=== PATIENT | female | born 1995 | race Caucasian/White ===

== ENCOUNTER 2017-06-10 15:01 | Emergency (ER) | payer BC, OTHER ==
[2017-06-10 15:15] VITALS: BP 109/83
--- NOTE | 2017-06-10 16:45 | UC ---
Respiratory Complaint HPI - HPI Summary HPI Summary: Patient presents with cough and congestion. She notes to pain with coughing. She has hx of bronchitis and states this feels similar. She notes to cough with production, SOB, chest congestion, nasal congestion, cough worse with recumbent position, better with orthostasis x 1 week. She states she wanted to wait and see her PCP but was afraid they would tell her to wait and she states she knows she needs abx at this time. Hx of bronchitis x yearly. Denies fevers , sweats or chills. - History of Current Complaint Chief Complaint: UCRespiratory Stated Complaint: URI Time Seen by Provider: 06/10/17 16:03 Hx Obtained From: Patient Hx Last Menstrual Period: NOW ?: No Onset/Duration: Sudden Onset Timing: Constant Severity Initially: Mild Severity Currently: Mild Pain Intensity: 0 Pain Scale Used: 0-10 Numeric Character: Cough: Productive Aggravating Factors: Deep Breaths, Recumbent Position Alleviating Factors: Bronchodilator, Upright Position Associated Signs And Symptoms: Positive: Dyspnea, URI, Nasal Congestion, Sinus Discomfort - Risk Factors Pulmonary Embolism Risk Factors: Negative Cardiac Risk Factors: Negative Pseudomonas Risk Factors: Negative Tuberculosis Risk Factors: Negative - Allergies/Home Medications Allergies/Adverse Reactions: Allergies Allergy/AdvReac Type Severity Reaction Status Date / Time dust mytes Allergy Unknown Shortness Uncoded 06/10/17 15:16 of Breath Home Medications: Home Medications Multiple Vitamins W/ Minerals [Vitamins & Minerals] 1 tab PO DAILY 06/10/17 [ History Confirmed 06/10/17] PMH/Surg Hx/FS Hx/Imm Hx Previously Healthy: Yes Other History Of: Negative For: Anticoagulant Therapy - Surgical History Surgical History: None - Social History Occupation: Employed Part-time Lives: With Family Alcohol Use: Occasionally Substance Use Type: None Smoking Status (MU): Never Smoked Tobacco Review of Systems Constitutional: Negative Skin: Negative Eyes: Negative ENT: Sore Throat, Nasal Discharge, Sinus Congestion, Sinus Pain/Tenderness Respiratory: Shortness Of Breath, Cough Cardiovascular: Negative Motor: Negative Neurovascular: Negative Neurological: Negative Is Patient Immunocompromised?: No All Other Systems Reviewed And Are Negative: Yes Physical Exam Triage Information Reviewed: Yes Appearance: Well-Appearing, Well-Nourished Vital Signs: Initial Vital Signs Temp 98.3 F 06/10/17 15:10 Pulse 68 06/10/17 15:10 Resp 16 06/10/17 15:10 BP 109/83 06/10/17 15:10 Pulse Ox 100 06/10/17 15:10 Vital Signs Reviewed: Yes Eye Exam: Normal Eyes: Positive: Conjunctiva Clear ENT: Positive: Pharynx normal, Nasal congestion, Nasal drainage Dental Exam: Normal Neck exam: Normal Neck: Positive: Supple, No Lymphadenopathy Respiratory Exam: Normal Respiratory: Positive: Chest non-tender Cardiovascular Exam: Normal Cardiovascular: Positive: RRR Musculoskeletal Exam: Normal Musculoskeletal: Positive: Strength Intact Neurological Exam: Normal Neurological: Positive: Alert Psychological Exam: Normal Psychological: Positive: Normal Response To Family Skin Exam: Normal Diagnostic Evaluation - Laboratory O2 Sat by Pulse Oximetry: 100 Respiratory Course/Dx - Course Course Of Treatment: Patient is evaluated for cough and congestion. She is requesting abx and states this is her usual bronchitis. Denies fevers, sweats or chills. Lungs CTA. Denies throat pain. No pharyngeal erythema or sinus pressure. She is given zpak and tesslalon. She is given an albuterol inhaler. She is Ok for discharge and return precautions given. - Differential Dx/Diagnosis Differential Diagnosis/HQI/PQRI: Bronchitis, Lower Resp Infection, Sinusitis Provider Diagnoses: Bronchitis Discharge - Discharge Plan Condition: Stable Disposition: HOME Prescriptions: Albuterol HFA INHALER* [Ventolin HFA Inhaler*] 1 puff INH Q4H PRN #1 mdi PRN Reason: Cough Azithromyxin SHELLY (NF) [Z-Shelly (Zithromax) 250 mg tabs #6] 2 tab PO .TODAY, THEN 1 DAILY #6 tab Benzonatate CAP* [Tessalon CAP*] 100 mg PO TID #21 cap Patient Education Materials: Acute Bronchitis (ED) Referrals: Lydia MACARIO,Leslie Ragsdale [Medical Doctor] - Additional Instructions: Follow up with PCP Take medications as directed For worsening cough or fevers, return to the Humidifier in the home will help Drink plenty of fluids
== END 2017-06-10 16:30 | disposition home or self-care (01) ==
LOC: UCEAST 15:01
DX: J40 Bronchitis, not specified as acute or chronic (principal)
CPT/HCPCS: 99202; G0463

== ENCOUNTER 2017-12-11 15:42 | Emergency (ER) | payer BC ==
--- NOTE | 2017-12-11 18:19 | UC ---
Easton Aguayo Gabriel, scribed for Anuradha Koo MD on 12/11/17 at 1742 . Dizzy HPI HPI Summary: This patient is a 22 year old F [place] [facility] [place] a chief complaint of nausea and dizziness that began this morning. The patient rates the pain 4/10 in severity. Patient reports weakness, decreased sleep for the past 2 days, fatigue, breathlessness, and a strange sensation in extremities. Describes bilateral diffuse upper extremity pain without loss of function. Patient denies decreased PO intake, v/d, dysuria, and vaginal discharge. Pt fainted a week ago and has had intermittent nausea since. Pt states she was standing on a train and when they went into a tunnel she got motion sickness and as she went to get out at the next stop everything became black and her hearing deafened, this lasted for 3 minutes. She did not seek medical advice after because 15 minutes after, she was ambulating and felt very close to baseline. Pt reports increased stress in her life. Hx of anxiety and panic attacks and is currently at [facility], having been at [place] in the past. She has seen her PCP earlier this week for the same issue; has had an EKG, labs, and is pending an echocardiogram tomorrow. - History Of Current Complaint Chief Complaint: UCGeneralIllness Stated Complaint: NAUSEA Time Seen by Provider: 12/11/17 17:31 Hx Obtained From: Patient Hx Last Menstrual Period: 11/26/2017 Onset/Duration: Lasting Days, Still Present Timing: Constant Severity Initially: Moderate Severity Currently: Moderate Pain Intensity: 4 Pain Scale Used: 0-10 Numeric Character: Lightheaded Associated Signs And Symptoms: Positive: Negative - decreased PO intake, decreased sleep for the past 2 days, v/d, dysuria, and vaginal discharge, Nausea - Allergies/Home Medications Allergies/Adverse Reactions: Allergies Allergy/AdvReac Type Severity Reaction Status Date / Time dust mytes Allergy Unknown Shortness Uncoded 06/10/17 15:16 of Breath PMH/Surg Hx/FS Hx/Imm Hx Psychological History: Anxiety, Depression Other History Of: Negative For: Anticoagulant Therapy - Surgical History Surgical History: None - Family History Known Family History: Positive: Cardiac Disease, Other - Borderline personality disorder Negative: Renal Disease, Respiratory Disease, Seizure Disorder - Social History Occupation: Student - [employer] Lives: Dormitory/Roommates - best friend Alcohol Use: Weekly Substance Use Type: None Smoking Status (MU): Never Smoked Tobacco Review of Systems Constitutional: Fatigue, Other - decreased sleep Respiratory: Other - breathlessness Gastrointestinal: Nausea Musculoskeletal: Other: - strange sensation in extremities Neurological: Weakness, Other - dizziness and syncope Psychological: Anxious - disrupted sleep, mix of insomnia and up late to work on school All Other Systems Reviewed And Are Negative: Yes Physical Exam Triage Information Reviewed: Yes Appearance: Thin, Other: - appears mildly anxious. Vital Signs: Initial Vital Signs Temp 99.0 F 12/11/17 16:17 Pulse 101 12/11/17 16:17 Resp 16 12/11/17 16:17 BP 131/91 12/11/17 16:17 Pulse Ox 100 12/11/17 16:17 ENT: Positive: Pharynx normal, Pharyngeal erythema Neck: Positive: Supple, Nontender, No Lymphadenopathy Respiratory: Positive: Lungs clear, Normal breath sounds Cardiovascular: Positive: RRR, No Murmur Abdomen Description: Positive: Nontender, No Organomegaly, Soft Musculoskeletal: Positive: Strength Intact, ROM Intact Neurological: Positive: Alert, Muscle Tone Normal, Other: - CNII to XII normal. No pronator drift. Normal patient scheduling coordinator. Gait normal. Psychological Exam: Other - reports feelings of anxiety Skin Exam: Other - facial acne Dizzy Course/Dx - Course Course Of Treatment: Pt medications reviewed this visit. BP noted and advised to follow up with PCP. Reviewed that cluster of symptoms is most consistent with anxiety. - Differential Dx/Diagnosis Provider Diagnoses: Elevated blood pressure without a previous diagnoses of hypertension Discharge - Sign-Out/Discharge Documenting (check all that apply): Discharge - Discharge Plan Condition: Stable Disposition: HOME Patient Education Materials: Anxiety (ED) Referrals: No Primary Care Phys,NOPCP [Primary Care Provider] - Additional Instructions: Your cluster of symptoms sounds most consistent with anxiety. You have a range of tests pending with Dr. Stapleton; please follow up with her tomorrow as arragned. - Billing Disposition and Condition Condition: STABLE Disposition: HOME The documentation as recorded by the Easton han Gabriel accurately reflects the service I personally performed and the decisions made by me, Anuradha Koo MD.
[2017-12-11 18:33] VITALS: BP 115/72
== END 2017-12-11 18:30 | disposition home or self-care (01) ==
LOC: UCEAST 15:42
DX: R03.0 Elevated blood-pressure reading, without diagnosis of hypertension (principal); R53.83 Other fatigue; R11.0 Nausea; R42 Dizziness and giddiness; R53.1 Weakness; L70.9 Acne, unspecified; F41.9 Anxiety disorder, unspecified; F32.9 Major depressive disorder, single episode, unspecified
CPT/HCPCS: 99212; G0463